=== PATIENT | male | born 1955 | race Caucasian/White ===

== ENCOUNTER 2016-06-05 17:34 | Emergency (ER) | payer MEDICARE, SELFPAY ==
[2016-06-05 14:11] LABS: BASOPHILS 0.2 %; BASOPHILS ABSOLUTE 0.02 10/3/uL (0.0-0.16); EOSINOPHILS 0.9 %; EOSINOPHILS ABSOLUTE 0.09 10/3/uL (0.0-0.53); ER CBC TAT 0 Hrs 05 Mins; HEMOGLOBIN 13.9 g/dL (13.6-17.8); IMMATURE GRANULOCYTES 1.3 %; IMMATURE GRANULOCYTES ABSOLUTE 0.13 10/3/uL (0.0-0.11); LYMPHOCYTES ABSOLUTE 1.04 10/3/uL (0.67-4.30); MEAN CORPUS HGB CONC 33.5 g/dL (32.0-36.0); MEAN CORPUSCULAR HEMOGLOB 30.8 pg (26.0-34.0); MEAN PLATELET VOLUME 10.1 fL (9.2-13.0); MONOCYTES 11.6 %; MONOCYTES ABSOLUTE 1.21 10/3/uL (0.21-1.20); PLATELET COUNT 147 10/3/uL (150-400); RBC DISTRIBUTION WIDTH 16.1 % (12.0-16.0); RED CELL COUNT 4.51 10/6/uL (4.7-6.1); WHITE BLOOD CELLS 10.4 10/3/uL (4.5-10.5)
[2016-06-05 14:12] LABS: HEMATOCRIT 41.5 % (40.0-51.0); MANUAL DIFF NO %
[2016-06-05 14:26] LABS: A/G RATIO 0.8 (0.7-1.9); BUN (BLOOD UREA NITROGEN) 17 MG/DL (6-23); CALCIUM, SERUM 8.6 MG/DL (8.5-10.4); CHLORIDE, SERUM 95 MMOL/L (96-112); CREATININE 1.47 MG/DL (0.70-1.30); GFR AFRICAN AMERICAN 58 ML/MIN (>=60); GFR NON AFRICAN AMERICAN 50 ML/MIN (>=60); GLOBULIN 3.9 G/DL (2.5-4.1); GLUCOSE, SERUM 134 MG/DL (60-99); SGOT(AST) 40 U/L (5-40); SGPT(ALT) 48 U/L (5-65); SODIUM, SERUM 138 MMOL/L (135-148); TOTAL BILIRUBIN 0.8 MG/DL (0-1.2); TOTAL PROTEIN 6.9 G/DL (6.0-8.5)
[2016-06-05 14:27] LABS: ALKALINE PHOSPHATASE 135 U/L (45-117); CO2 (CARBON DIOXIDE) 32 MMOL/L (24-34); POTASSIUM, SERUM 3.7 MMOL/L (3.5-5.3)
[2016-06-05 14:39] LABS: ASCORBIC ACID (UR NOT ORDER) 20 (NEG); BILIRUBIN, URINE NEGATIVE (NEG); ER URINALYSIS TAT 0 Hrs 27 Mins; KETONE, URINE NEGATIVE (NEG); LEUKOCYTE ESTERASE(NOT OR NEG (NEG); NITRITE (URINE) NEG (NEG); WBC (NOT ORDERED) (RFLEX) 3 (0-5)
[~2016-06-05 17:34] MED LIST: ALPHAGAN OPH; AMB10 PO; ANDROGEL5 TOP; ANSAID100 MG OR; ANSAID100 MG PO; ASAB PO; AUGMENTIN; B 12; B-12 IM; B121000P IM; BENTYL20 PO; BRIMONIDINE; BRIMONIDINE0.2 %; BRIMONIDINE0.2 % OP; BRIMONIDINE0.2 % OPH; C1 PO; C5 PO; CALCIUM CITRATE PO; CARASPUDL PO; CARDCD120 PO; CENTRUM TAB1 TAB PO; CLIN200 PO; COLCH6 PO; COMBIGAN0.2 MG/0.5 OP; CORDARONE PO; COSOPT; COSOPT OP; COSOPT OPH; DEMA10T PO; DEMA20 PO; DEPO-TESTOS200 MG/M1 IM; DEPO-TESTOS200 MG/ML IM; DRAMAMINE25 MG PO; DURA12 TOP; DURA25 TOP; DURA50 TOP; EMBREL IM; FLONASE NAS; FLUCON1 PO; FLURBIPROFEN100 MG OR; FOLIC PO; GAS-X80 MG PO; IRON INFUSION IV; KDUR20 PO; KLOR-CON M2020 MEQ; KLOR-CON M2020 MEQ PO; L20 PO; LASIX PO; LEVEMIR SC; LISINOPRIL40 MG PO; LOM; LOM PO; LORT7; LORTAB10 PO; MAGNESIUM 400 MG PO; MAGNESIUM PO; MAGOX4 PO; MAX2 IV; MCZ25 PO; METHOTREXATE25 MG/ML IM; METHOTREXATE25 MG/ML IM/SC; METHOTREXATE25 MG/ML SC; METHOTREXATE25 MG/ML SQ; MEXATE250 SQ; MYTAB GAS80 MG PO; Magnesium PO; NEUR600 PO; NITROQUICK0.4 MG SL; NITROSTAT0.4 MG; NITROSTAT0.4 MG SL; NORCO1 TAB PO; NTG150 SL; NYS500UDL PO; ORENCIA IV; P1 PO; P10 PO; P5 PO; PACERONE100 MG PO; PLAQ200B PO; PRADAXA150 MG PO; PREV30 PO; PRILO PO; PRILOSEC40 MG PO; PRIN20 PO; PRIN5 PO; PROZAC40 MG PO; QUESTRAN4 GM PO; RANITIDINE300 MG PO; REM15 PO; RYTHMOL SR325 MG; RYTHMOL225 MG; RYTHMOL225 MG PO; STRIANT30 MG BU; SUCR PO; T PO; TESTOST CYP100 MG/ML IM; TESTOST CYP200 MG/ML IM; TESTOSTERONE IM; TESTOSTERONE TD; TPN; TRAVATAN OPH; VANCO1P IV; VITAMIN B COMPLEX PO; VITAMIN C PO; VITAMIN D31000 UNIT PO; VITAMIN E PO; Vitamin C PO; X5 PO; XALAT OP; XALAT OPH; XYZAL5 MG PO; Z5 PO; ZINC; [UNRECOGNIZED DRUG - OTHER]; [UNRECOGNIZED DRUG - OTHER]; [UNRECOGNIZED DRUG - OTHER]; [UNRECOGNIZED DRUG - OTHER]; [UNRECOGNIZED DRUG - OTHER] OP
[2016-06-05 18:00] LABS: TROPONIN I <0.02 NG/ML (<0.05)
[2016-06-16] MEDS ORDERED: NEUR600 PO (15:57)
[2016-06-16] MEDS ORDERED: PLAQ200B PO (15:58)
[2016-06-16] MEDS ORDERED: P10 PO (15:58)
[2016-06-16] MEDS ORDERED: MCZ25 PO (15:58)
[2016-06-16] MEDS ORDERED: FOLIC PO (15:59)
[2016-06-16] MEDS ORDERED: MEXATE250 IM (15:59)
[2016-06-16] MEDS ORDERED: X5 PO (15:59)
[2016-06-16] MEDS ORDERED: NORCO1 TAB PO (16:00)
[2016-06-16] MEDS ORDERED: DURA50 TOP (16:01)
[2016-06-16] MEDS ORDERED: FLONASE NAS (16:01)
[2016-06-16] MEDS ORDERED: MAGOX4 PO (16:02)
[2016-06-16] MEDS ORDERED: KLOR-CON M2020 MEQ PO (16:02)
[2016-06-16] MEDS ORDERED: PROZAC40 MG PO (16:02)
[2016-06-16] MEDS ORDERED: SUCR PO (16:03)
[2016-06-16] MEDS ORDERED: PRILOSEC40 MG PO (16:03)
[2016-06-16] MEDS ORDERED: XALAT OPH (16:04)
[2016-06-16] MEDS ORDERED: COSOPT OPH (16:07)
[2016-06-16] MEDS ORDERED: PACERONE100 MG PO (16:08)
[2016-06-16] MEDS ORDERED: PRADAXA150 MG PO (16:08)
[2016-06-16] MEDS ORDERED: DEMA20 PO (16:08)
[2016-06-16] MEDS ORDERED: BRIMONIDINE0.2 % OPH (16:08)
[2016-06-24] MEDS ORDERED: P20 PO (15:54)
[2016-06-24] MEDS ORDERED: [UNRECOGNIZED DRUG - OTHER] PO (16:27)
[2016-06-24] MEDS ORDERED: TPN (16:30)
[2016-06-29] MEDS ORDERED: NEUR600 PO (18:27)
[2016-06-29] MEDS ORDERED: MCZ25 PO (18:27)
[2016-06-29] MEDS ORDERED: P20 PO (18:29)
[2016-06-29] MEDS ORDERED: FOLIC PO (18:29)
[2016-06-29] MEDS ORDERED: X5 PO (18:30)
[2016-06-29] MEDS ORDERED: NORCO1 TAB PO (18:31)
[2016-06-29] MEDS ORDERED: DURA25 TOP (18:31)
[2016-06-29] MEDS ORDERED: PROZAC PO (18:33)
[2016-06-29] MEDS ORDERED: FLONASE NAS (18:33)
[2016-06-29] MEDS ORDERED: SUCR PO (18:34)
[2016-06-29] MEDS ORDERED: MAGOX4 PO (18:34)
[2016-06-29] MEDS ORDERED: KLOR-CON M2020 MEQ PO (18:34)
[2016-06-29] MEDS ORDERED: PRILOSEC40 MG PO (18:34)
[2016-06-29] MEDS ORDERED: XALAT OPH (18:35)
[2016-06-29] MEDS ORDERED: ALPHAGAN OPH (18:35)
[2016-06-29] MEDS ORDERED: COSOPT OPH (18:35)
[2016-06-29] MEDS ORDERED: PACERONE100 MG PO (18:36)
[2016-06-29] MEDS ORDERED: DEMA20 PO (18:37)
[2016-06-29] MEDS ORDERED: PRADAXA150 MG PO (18:37)
[2016-06-29] MEDS ORDERED: Z5 PO (18:38)
[2016-06-29] MEDS ORDERED: ACET500CAP PO (18:39)
== END 2016-06-05 21:30 | disposition home or self-care (01) ==
LOC: ER 17:34
PROVIDERS: Emergency Medicine
PROC: 02HV33Z Insertion of Infusion Device into Superior Vena Cava, Percutaneous Approach (ICD-10-PCS; principal; 2016-06-05)
PROC: B5181ZA Fluoroscopy of Superior Vena Cava using Low Osmolar Contrast, Guidance (ICD-10-PCS; 2016-06-05)
DX: Z45.2 Encounter for adjustment and management of vascular access device (principal); R50.9 Fever, unspecified; N28.9 Disorder of kidney and ureter, unspecified; Z88.2 Allergy status to sulfonamides; Z88.5 Allergy status to narcotic agent; Z88.1 Allergy status to other antibiotic agents; Z88.8 Allergy status to other drugs, medicaments and biological substances; Z79.52 Long term (current) use of systemic steroids; Z79.899 Other long term (current) drug therapy
CPT/HCPCS: 36569; 36597; 71020; 77002; 80053; 81001; 84484; 85025; 87040; 93005; 99285; C1751; C1769; C1894; J1170; J2405; J3370